=== PATIENT | female | born 1965 | race Caucasian/White ===

== ENCOUNTER 2018-05-24 01:10 | Emergency (ER) | payer OTHER ==
[2018-05-24 01:38] LABS: BASOPHILS # (AUTO) 0.1 10^3/uL (0.0-0.1); BASOPHILS % (AUTO) 0.7 %; EOSINOPHILS # (AUTO) 0.2 10^3/uL (0.0-0.7); EOSINOPHILS % (AUTO) 1.7 %; HGB - HEMOGLOBIN 11.3 g/dL (12.0-16.0); LYMPHOCYTES # (AUTO) 2.2 10^3/uL (1.5-3.5); LYMPHOCYTES % (AUTO) 23.3 %; MEAN CORPUSCULAR VOLUME 75.8 fL (81.0-99.0); MEAN PLATELET VOLUME 6.9 fL (7.9-10.8); MONOCYTES # (AUTO) 0.6 10^3/uL (0.0-1.0); MONOCYTES % (AUTO) 6.1 %; NEUTROPHILS # (AUTO) 6.5 10^3/uL (1.5-6.6); NEUTROPHILS % (AUTO) 68.2 %; PLT - PLATELET COUNT 286 10^3/uL (130-450); RED BLOOD COUNT 4.51 10^6/uL (4.20-5.40); RED CELL DISTRIBUTION WIDTH 16.1 % (12.0-15.0); WHITE BLOOD COUNT 9.5 x10^3/uL (4.8-10.8)
[2018-05-24 01:52] LABS: ALBUMIN 3.6 g/dL (3.2-5.5); ALBUMIN/GLOBULIN RATIO 1.1 (1.0-2.2); BILIRUBIN,TOTAL 0.8 mg/dL (0.2-1.0); CALCIUM 8.8 mg/dL (8.5-10.3); CREATININE 0.7 mg/dL (0.4-1.0)
[2018-05-24 02:32] VITALS: BP 128/84
--- NOTE | 2018-05-24 02:33 | ED Physician Documentation ---
History of Present Illness - Stated complaint Stated Complaint: RAPID HEART RATE - Chief complaint Chief Complaint: Cardiac - History obtained from History obtained from: Patient - History of Present Illness Timing: Enter time (22:15) Pain level max: 1 (chest burning) Pain level now: 0 Improved by: no apparent ameliorating factors, but resolved by the time of evaluation Worsened by: no exacerbating factors - Additonal information Additional information: sudden onset rapid palpitations approximately 10:15 PM that woke her from sleep. she took first dose of Lexapro approximately 30 minutes earlier, which was recently prescribed by PMD for possible anxiety. she used her Fitbit during the episode of palpitations and noted the heart rate measured by this device was 104. patient was admitted to a hospital in [place] approximately 10 days ago for chest pain, cardiac w/u included what sounds like (per her description of the procedure) a pharmacological MR stress test; she says the results were inconclusive and that she has an appointment next week with cardiology. she has not had palpitations until tonight Review of Systems Cardiac: reports: Chest pain / pressure (resolved), Palpitations (resolved). denies: Pedal edema, Calf pain Respiratory: reports: Reviewed and negative GI: reports: Reviewed and negative PD PAST MEDICAL HISTORY - Past Medical History Past Medical History: Yes Cardiovascular: None Respiratory: Pneumonia Neuro: None Endocrine/Autoimmune: None GI: None INSIDE STEWARD/STEWARDESS: Endometriosis : None HEENT: None Psych: Claustrophobia Musculoskeletal: None Derm: None - Past Surgical History Past Surgical History: Yes General: Other Ortho: Rotator cuff repair - Allergies Allergies/Adverse Reactions: Allergies Allergy/AdvReac Type Severity Reaction Status Date / Time hydrocodone AdvReac Unknown Verified 05/24/18 01:38 Iodinated Contrast- Oral and AdvReac Anaphylaxis Verified 05/24/18 01:37 IV Dye oxycodone AdvReac Unknown Verified 05/24/18 01:38 Penicillins AdvReac Unknown Verified 05/24/18 01:37 Sulfa (Sulfonamide AdvReac Headache Verified 05/24/18 01:38 Antibiotics) - Social History Does the pt smoke?: No Smoking Status: Never smoker Does the pt drink ETOH?: Yes Does the pt have substance abuse?: No - Immunizations Immunizations are current?: Yes - POLST Patient has POLST: No PD ED PE NORMAL - Vitals Vital signs reviewed: Yes - General General: Alert and oriented X 3, No acute distress, Well developed/nourished - Cardiac Cardiac: RRR, No murmur, No gallop, No rub - Respiratory Respiratory: No respiratory distress, Clear bilaterally - Abdomen Abdomen: Soft, Non tender - Extremities Extremities: No edema Results - Vitals Vitals: Oxygen O2 Source Room air - EKG (time done) No standard instances Rate: Rate (enter#) (75) Rhythm: NSR [place]: Normal Intervals: Normal [place] QRS: Normal Ischemia: Normal ST segments Computer interpretation: Disagree with computer (no ST segment abnormalities ( artifact in inferior leads, but there are complexes in these leads without artifact that enable interpretation)) - Labs Labs: Laboratory Tests 05/24/18 05/24/18 05/24/18 01:30 01:30 01:30 WBC 9.5 RBC 4.51 Hgb 11.3 L Hct 34.2 L MCV 75.8 L MCH 25.0 L MCHC 33.0 RDW 16.1 H Plt Count 286 MPV 6.9 L Neut # (Auto) 6.5 Lymph # (Auto) 2.2 [place] # (Auto) 0.6 Eos # (Auto) 0.2 Baso # (Auto) 0.1 Absolute Nucleated RBC 0.00 Nucleated RBC % 0.0 Sodium 139 Potassium 3.9 Chloride 106 Carbon Dioxide 25 Anion Gap 8.0 BUN 15 Creatinine 0.7 Estimated GFR (MDRD) 88 L Glucose 115 H Calcium 8.8 Total Bilirubin 0.8 AST 14 ALT 14 Alkaline Phosphatase 50 Troponin I < 0.04 Total Protein 7.0 Albumin 3.6 Globulin 3.4 Albumin/Globulin Ratio 1.1 Lipase 25 PD MEDICAL DECISION MAKING - ED course Complexity details: reviewed results, re-evaluated patient, considered differential, d/w patient, d/w family ED course: remained asymptomatic during ED stay - Sepsis Event Vital Signs: Oxygen O2 Source Room air Departure - Departure Disposition: 01 Home, Self Care Clinical Impression: Palpitations Condition: Good Instructions: ED Palpitations Follow-Up: Heidi Shelton PA [Primary Care Provider] - Discharge Date/Time: 05/24/18 02:59
== END 2018-05-24 02:59 | disposition home or self-care (01) ==
LOC: ED 01:10
DX: R00.2 Palpitations (principal)
CPT/HCPCS: 36415; 80053; 83690; 84484; 85025; 93005; 99283

== ENCOUNTER 2021-08-18 08:00 | Outpatient (CLI) | payer OTHER | END 2021-08-18 23:59 | disposition home or self-care (01) | LOC: LAB.S 08:00 | PROVIDERS: ATTEND Nurse Practitioner | DX: R30.0 Dysuria (principal) | CPT/HCPCS: 87077; 87086 ==

== ENCOUNTER 2021-12-29 16:57 | Outpatient (CLI) | payer OTHER ==
--- NOTE | 2021-12-29 19:02 | XRAY Report ---
PROCEDURE: Hips 2V BILAT INDICATIONS: XRAY TECHNIQUE: AP view of the pelvis. Lateral views of the bilateral hips were acquired. COMPARISON: October 10, 2007. FINDINGS: BONES/JOINTS: No acute, displaced fracture. No widening of the pubic symphysis. The sacroiliac joints are symmetric. The femoral heads are normal ly seated within the acetabulum. SOFT TISSUES: No focal abnormality. An intrauterine device is seen in situ. IMPRESSION: 1.No acute osseous abnormality. Reviewed by: Len Lee MD on 12/29/2021 7:01 PM [facility] Approved by: Len Lee MD on 12/29/2021 7:01 PM [facility] Station ID: [id number]
== END 2021-12-29 16:58 | disposition home or self-care (01) ==
LOC: DI.S 16:57
PROVIDERS: ATTEND Nurse Practitioner Family
DX: M25.551 Pain in right hip (principal); M25.552 Pain in left hip

== ENCOUNTER 2022-07-07 08:00 | Outpatient (CLI) | payer OTHER | END 2022-07-07 23:59 | disposition home or self-care (01) | LOC: LAB 08:00 | PROVIDERS: ATTEND Physician Assistant Medical | DX: R39.15 Urgency of urination (principal); R30.0 Dysuria; R31.9 Hematuria, unspecified | CPT/HCPCS: 87077; 87086 ==

== ENCOUNTER 2023-04-30 08:00 | Outpatient (CLI) | payer OTHER ==
[2023-04-30 14:30] LABS: BILIRUBIN,URINE NEGATIVE (NEGATIVE); GLUCOSE, URINE (UA) NEGATIVE (NEGATIVE); KETONES,URINE (UA) NEGATIVE (NEGATIVE); LEUKOCYTE ESTERASE, URINE NEGATIVE (NEGATIVE); NITRITE,URINE NEGATIVE (NEGATIVE); OCCULT BLOOD,URINE NEGATIVE (NEGATIVE); PROTEIN,URINE NEGATIVE (NEGATIVE); UROBILINOGEN,URINE 0.2 (NORMAL) E.U./dL (NORMAL)
[2023-04-30 14:31] LABS: CLARITY,URINE CLEAR (CLEAR)
[2023-04-30 14:34] LABS: BACTERIA,URINE None Seen /HPF (None Seen); RBC,URINE None Seen /HPF (0-5); SQUAMOUS EPITHELIAL CELL,UR NONE SEEN (<= Few); WBC,URINE 0-3 /HPF (0-5)
== END 2023-04-30 23:59 | disposition home or self-care (01) ==
LOC: LAB.S 08:00
PROVIDERS: ATTEND Physician Assistant Medical
DX: R31.9 Hematuria, unspecified (principal)
CPT/HCPCS: 81001; 87086